=== PATIENT | female | born 1975 | race Caucasian/White ===

== ENCOUNTER 2022-01-14 10:29 | Outpatient (CLI) | payer BC, SELFPAY ==
--- NOTE | ~2022-01-14 | XR_ITS ---
EXAMINATION: XR hip LT min 2V DATE: 01/14/2022 10:54 INDICATION: Left hip pain. Fall. TECHNIQUE: 3 views of left hip were obtained. COMPARISON: None. FINDINGS: Bone alignment is normal. No fracture. Left hip joint space is normal. IMPRESSION: 1. Normal left hip. Reviewed, dictated and finalized at location A. L TRUER IMPRESSION: 1. Normal left hip.
== END 2022-01-14 10:30 | disposition home or self-care (01) ==
PROVIDERS: PCP Nurse Practitioner Family; Visit Provider Nurse Practitioner Family
DX: M25.552 Pain in left hip (principal)
CPT/HCPCS: 73502

== ENCOUNTER 2022-10-29 06:27 | Emergency (ER) | payer BC, SELFPAY ==
[2022-10-29 06:32] VITALS: BP 122/75; PULSE 67; RESP 18; TEMP 36.5; O2SAT 99
--- NOTE | 2022-10-29 06:51 | PC.NURSE ---
Visual acuity right 20/40, left 20/40, bilateral 20/30.
--- NOTE | 2022-10-29 07:41 | ED.EYEPROB ---
HPI - Eye Problem General Chief complaint: Eye Problems Stated complaint: lt eye redness with discharge Time Seen by Provider: 10/29/22 07:37 History of Present Illness HPI Narrative: Pt presents with left eye itching and redness and mattering in left eye since yesterday. Pt denies injury. Pt has a runny nose as well. 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 No visual symptoms. Related Data Allergies Allergy/AdvReac Type Severity Reaction Status Date / Time No Known Allergies Allergy Verified 10/29/22 06:37 Review of Systems Review of Systems: All systems reviewed & are unremarkable except as noted in HPI and below Exam Const: General: healthy appearing Nutritional Appearance: well nourished Orientation/consciousness: patient oriented x3 Limitations: no limitations HENMT: Mouth: Yes Normal oral and palatal mucosa present Throat: posterior oropharynx normal Eyes: Conjunctivae: conjunctival abnormality left conjunctival injection and discharge Pupils: Equal, round and reactive pupils present EOM: EOMs intact bilaterally Neck: Neck: normal visual inspection and no lymphadenopathy Course Vital Signs Vital signs: Vital Signs Temperature 97.7 F 10/29/22 06:32 Pulse Rate 67 10/29/22 06:32 Respiratory Rate 18 10/29/22 06:32 Blood Pressure 122/75 10/29/22 06:32 Pulse Oximetry 99 10/29/22 06:32 Oxygen Delivery Room Air 10/29/22 06:32 Temperature 97.7 F 10/29/22 06:32 Pulse Rate 67 10/29/22 06:32 Respiratory Rate 18 10/29/22 06:32 Blood Pressure 122/75 10/29/22 06:32 Pulse Oximetry 99 10/29/22 06:32 Oxygen Delivery Room Air 10/29/22 06:32 MDM - Eye Problem MDM Narrative Medical decision making narrative: viral v bacterila conjunctivitis not likely to be abrasion or keratitis given history and presentation Discharge Plan Discharge Clinical Impression: Bacterial conjunctivitis Patient Disposition: Home, Self-Care Condition: Stable Instructions: Antibiotic Form, Conjunctivitis (ED) Prescriptions: New gentamicin 0.3 % drops 1 drp LEFT EYE Q4H Qty: 5 0RF Follow-up/Referrals: Velma,DENISA Lui-FLORA [Primary Care Provider] -
== END 2022-10-29 07:50 | disposition home or self-care (01) ==
PROVIDERS: Emergency Provider Emergency Medicine; PCP Nurse Practitioner Family
DX: H10.89 Other conjunctivitis (principal)
CPT/HCPCS: 99283

== ENCOUNTER 2022-11-01 21:22 | Emergency (ER) | payer BC, SELFPAY ==
[2022-11-01 21:35] VITALS: BP 130/73; PULSE 78; RESP 18; TEMP 36.4; O2SAT 97
[2022-11-01 23:02] LABS: Influenza A QL RT-PCR Negative (Negative); Influenza B QL RT-PCR Negative (Negative); RSV RNA, RT-PCR Negative (Negative); SARS-CoV-2 RNA PCR Negative
--- NOTE | 2022-11-01 23:53 | ED.GENADULT ---
HPI - General Adult General Chief complaint: Upper Respiratory Infection Stated complaint: cough Time Seen by Provider: 11/01/22 21:46 History of Present Illness HPI narrative: 47-year-old female presented to the emergency department for evaluation of persistent cough for approximately 1 week. Patient states she is a long-term smoker and has recently switched to vaping. Patient was also recently diagnosed with conjunctivitis and is currently on antibiotic drops and states that this is improving. Patient has been using an [id number] epinephrine and inhaler with no significant improvement in her cough symptoms. Related Data Allergies Allergy/AdvReac Type Severity Reaction Status Date / Time No Known Allergies Allergy Verified 11/01/22 21:40 Review of Systems Review of Systems: CONSTITUTIONAL: Denies fever, chills, or sweats. EYES: Denies visual changes, redness, or discharge. ENT: Denies rhinorrhea, congestion, sore throat, or otalgia. CARDIOVASCULAR: Denies chest pain, palpitations, or edema. RESPIRATORY: See HPI GASTROINTESTINAL: Denies abdominal pain, nausea, vomiting, or diarrhea. GENITOURINARY: Denies dysuria or hematuria. SKIN: Denies rash or itching. MUSCULOSKELETAL: Denies back pain, joint pain, or myalgia. NEUROLOGIC: Denies headache, numbness, or weakness. Exam Narrative: APPEARANCE: Well appearing, no pain, no distress, well-nourished. HEAD: normocephalic, atraumatic. EYES: PERRLA/EOMI, conjunctivae clear. NOSE: Normal no drainage EARS:TMS clear with good light reflex. THROAT: Pharynx clear, no exudate. NECK: Supple. No adenopathy, no masses. RESPIRATORY: Airway patent, respirations nonlabored. Clear to auscultation bilaterally, no rales, rhonchi, wheezing. CARDIOVASCULAR: Regular rate and rhythm without murmurs rubs or gallops. ABDOMINAL: Soft, nontender, nondistended, normal bowel sounds MUSCULOSKELETAL: Moves all extremities. Strength/ROM intact, No edema, No calf tenderness. NEURO: Alert. Cranial nerves II through XII intact. Grossly intact SKIN: Warm, dry. Normal Color Course Course Emergency Course: Patient was negative for COVID flu influenza and RSV. Patient's lungs are clear to auscultation. Patient was saturating 97% on room air. Due to the duration of the illness and her history of smoking patient will be treated for a typical pneumonia and will be started on azithromycin. Patient was also provided albuterol inhaler and Tessalon Perles for symptom control. Vital Signs Vital signs: Vital Signs Temperature 97.5 F L 11/01/22 21:35 Pulse Rate 78 11/01/22 21:35 Respiratory Rate 18 11/01/22 21:35 Blood Pressure 130/73 11/01/22 21:35 Pulse Oximetry 97 11/01/22 21:35 Oxygen Delivery Room Air 11/01/22 21:35 Temperature 97.5 F L 11/01/22 21:35 Pulse Rate 85 11/01/22 23:56 Respiratory Rate 20 11/01/22 23:56 Blood Pressure 130/73 11/01/22 21:35 Pulse Oximetry 95 11/01/22 23:56 Oxygen Delivery Room Air 11/01/22 21:35 Medical Decision Making Vital Signs Vital Signs: Vital Signs Temperature 97.5 F L 11/01/22 21:35 Pulse Rate 78 11/01/22 21:35 Respiratory Rate 18 11/01/22 21:35 Blood Pressure 130/73 11/01/22 21:35 Pulse Oximetry 97 11/01/22 21:35 Oxygen Delivery Room Air 11/01/22 21:35 Temperature 97.5 F L 11/01/22 21:35 Pulse Rate 85 11/01/22 23:56 Respiratory Rate 20 11/01/22 23:56 Blood Pressure 130/73 11/01/22 21:35 Pulse Oximetry 95 11/01/22 23:56 Oxygen Delivery Room Air 11/01/22 21:35 Lab Data Labs: Lab Results 11/01/22 Range/Units 22:21 Influenza A (RT-PCR) Negative (Negative) Influenza B (RT-PCR) Negative (Negative) RSV (RT-PCR) Negative (Negative) SARS-CoV-2 RNA (RT-PCR) Negative Discharge Plan Discharge Clinical Impression: Cough Patient Disposition: Home, Self-Care Condition: Stable Instructions: Antibiotic Form, Acute Bronchitis (ED) Additi
[2022-11-01] MEDS: BENZONATATE 100 MG CAPSULE 200 MG PO (23:54)
[2022-11-01] MEDS: AZITHROMYCIN 250 MG TABLET 500 MG PO (23:55)
[2022-11-01 23:56] VITALS: PULSE 85; RESP 20; O2SAT 95
== END 2022-11-01 23:56 | disposition home or self-care (01) ==
PROVIDERS: Emergency Provider Emergency Medicine; PCP Nurse Practitioner Family
DX: R05.9 Cough, unspecified (principal); Z20.822 Contact with and (suspected) exposure to COVID-19
CPT/HCPCS: 87637; 99283; A9270

== ENCOUNTER 2024-05-03 20:57 | Emergency (ER) | payer SELFPAY ==
--- NOTE | ~2024-05-03 | XR_ITS ---
EXAM: XR ankle RT min 3V, XR foot RT min 3V DATE: 05/03/2024 22:42 HISTORY: fall, pain . COMPARISON: None available. FINDINGS: Decreased mineralization. Curvilinear ossific fragment along the undersurface of the later al malleolus, seen only in one view, may represent acute or chronic fracture fragment or degenerative change. Small focus of dystrophic calcification at the tip of the medial malleolus. No lytic or spencer tic lesion. Scattered degenerative change. Plantar enthesopathy. No erosion or periosteal change. Ank le soft tissue swelling. IMPRESSION: Possible small acute versus chronic lateral malleolar fracture, correlate for point tende rness. Reviewed, dictated and finalized at location K. IMPRESSION: Possible small acute versus chronic lateral malleolar fracture, cor relate for point tenderness.
--- NOTE | ~2024-05-03 | XR_ITS ---
EXAM: XR knee RT min 4V DATE: 05/03/2024 22:01 HISTORY: pain, fall . COMPARISON: None available. FINDINGS: Osteopenia. No fracture or dislocation. No lytic or blastic lesion. Moderate tricompartmen janina osteoarthritis. No erosion or periosteal change. Anterior soft tissue swelling/edema. IMPRESSION: No acute osseous finding in the right knee. Reviewed, dictated and finalized at location K.
[2024-05-03 21:02] VITALS: BP 122/67; PULSE 72; RESP 20; TEMP 36.8; O2SAT 100
[2024-05-03] MEDS: ACETAMINOPHEN 500 MG TABLET 1000 MG PO (22:48)
[2024-05-03] MEDS: KETOROLAC (*BKC) 60 MG/2 ML VIAL IM (22:48)
--- NOTE | 2024-05-03 23:25 | ED.LOWEXIN ---
HPI - Extremity Injury (Lower) General Chief Complaint: Extremity Injury, Lower Stated Complaint: fall, knee pain Time Seen by Provider: 05/03/24 21:50 Source: patient Mode of arrival: ambulatory Limitations: no limitations History of Present Illness HPI Narrative: Patient is a 48 y/o female who presents to the ED with c/o a fall. Patient reports she tripped and fell earlier this morning and landed on her right leg/right knee. She did not hit her head or lose consciousness. She has since developed pain throughout her right knee, right ankle, right dorsal foot. She reports difficulty walking due to the pain. She took Aspirin this morning. Denies other injuries. Denies numbness. Related Data Allergies Allergy/AdvReac Type Severity Reaction Status Date / Time No Known Allergies Allergy Verified 05/03/24 21:15 Review of Systems Review of Systems: CONSTITUTIONAL: Denies fever, chills, or sweats. MUSCULOSKELETAL: see HPI. NEUROLOGIC: Denies headache, dizziness, numbness, or weakness. All systems reviewed & are unremarkable except as noted in HPI and below Exam Narrative: GENERAL: Well appearing, morbidly obese with BMI of 43.0, non-toxic, in no acute distress. HEAD: Normocephalic, atraumatic. RESPIRATORY: Airway patent, respirations nonlabored. CARDIOVASCULAR: Regular rate and rhythm. Pedal pulses intact. MUSCULOSKELETAL: Moves all extremities. Limited ROM of R knee/ankle d/t pain. TTP throughout inferior and lateral R knee joint spaces with mild swelling noted. Small abrasions present over anterior R knee, no wounds/lacerations/active bleeding. Mild tenderness to palpation over lateral malleoli and anterior lateral dorsal R foot. No significant swelling. Sensation intact. Able to wiggle toes. Capillary refill intact. SKIN: Warm, dry, normal color. NEURO: A&O X3. Speech clear. PSYCHIATRIC: Appropriate mood and affect. Normal interaction. Course Vital Signs Vital signs: Vital Signs Temperature 98.2 F 05/03/24 21:02 Pulse Rate 72 05/03/24 21:02 Respiratory Rate 20 05/03/24 21:02 Blood Pressure 122/67 05/03/24 21:02 Pulse Oximetry 100 05/03/24 21:02 Oxygen Delivery Room Air 05/03/24 21:02 Temperature 98.2 F 05/03/24 21:02 Pulse Rate 72 05/03/24 21:02 Respiratory Rate 20 05/03/24 21:02 Blood Pressure 122/67 05/03/24 21:02 Pulse Oximetry 100 05/03/24 21:02 Oxygen Delivery Room Air 05/03/24 21:02 MDM - Extremity Injury (Lower) MDM Narrative Medical decision making narrative: Patient?s injury is consistent with musculoskeletal etiology. No signs of neurologic or vascular compromise on physical examination. Compartments are soft without signs of compartment syndrome. XR of R knee showing soft tissue swelling, no acute osseous abnormality. No joint effusion. X-ray of right foot /ankle showing possible acute versus chronic fracture of distal in the lateral malleoli. Discussed this with patient. She denies any previous ankle fracture. She does not have point tenderness in this region. Low suspicion for acute fracture. Placed in Bruce bandage around ankle, knee immobilizer. Feel patient is safe for discharge home and continued outpatient management. Will refer to orthopedics for further evaluation if needed. She has crutches. Discussed rice therapy, strict return precautions. She agrees with plan. Discharged in stable condition. Medical Records Attestation: I reviewed the patient's medical records. Imaging Data Attestation: I personally reviewed and interpreted this imaging study as follows: Radiologist's impression: ITS Impressions Knee X-Ray 05/03/24 22:05 IMPRESSION: No acute osseous finding in the right knee. Ankle X-Ray 05/03/24 23:04 IMPRESSION: Possible small acute versus chronic lateral malleolar fracture, correlate for point tenderness. Foot X-Ray 05/03/24 23:04
[2024-05-04 00:10] VITALS: BP 132/80; PULSE 77; RESP 15; O2SAT 99
== END 2024-05-04 00:11 | disposition home or self-care (01) ==
PROVIDERS: Emergency Provider Physician Assistant
DX: S93.401A Sprain of unspecified ligament of right ankle, initial encounter (principal); S83.91XA Sprain of unspecified site of right knee, initial encounter; W01.0XXA Fall on same level from slipping, tripping and stumbling without subsequent striking against object, initial encounter
CPT/HCPCS: 73564; 73610; 73630; 96372; 99284; A9270; J1885